=== PATIENT | male | born 1995 | race Two or more races ===

== ENCOUNTER 2024-05-11 17:25 | Emergency (ER) | payer BC ==
[2024-05-11 17:56] LABS: APPEARANCE,URINE CLOUDY (CLEAR); BILIRUBIN,URINE NEGATIVE (NEGATIVE); COLOR,URINE YELLOW (YELLOW); GLUCOSE,URINE NEGATIVE (NEGATIVE); KETONES,URINE NEGATIVE (NEGATIVE); LEUKOCYTE ESTERASE,URINE SMALL (NEGATIVE); NITRITE,URINE NEGATIVE (NEGATIVE); OCCULT BLOOD,URINE LARGE (NEGATIVE); PH,URINE 5.5 (5.0-9.0); PROTEIN,URINE 100 (NEGATIVE); UROBILINOGEN,URINE 0.2 mg/dL (0.2-1.0)
[2024-05-11] MEDS: Phenazopyridine 95 MG Tab PO ONE (18:40)
[2024-05-11] MEDS: Cephalexin 500 MG Cap PO ONE (18:40)
[2024-05-11] MEDS: Take Home: Cephalexin 500 MG Cap, 6 Cap Pack PO ONE (18:41)
[2024-05-11] MEDS: Take Home: Phenazopyridine 95 MG Tab, 4 Tab Pack PO ONE (18:41)
[2024-05-11 18:47] LABS: BACTERIA,URINE FEW /HPF (0-FEW/HPF); EPITHELIAL CELLS,URINE RARE /HPF (NOT SEEN); RBC,URINE 30-40 /HPF (0-5); WBC,URINE 20-30 /HPF (0-5/HPF)
== END 2024-05-11 18:51 | disposition home or self-care (01) ==
LOC: DL.ED 17:25
DX: N39.0 Urinary tract infection, site not specified (principal)
CPT/HCPCS: 81001; 87086; 87491; 87563; 87591; 99283; A9270; 87088; 87186